=== PATIENT | female | born 1945 | race Caucasian/White ===

== ENCOUNTER 2019-02-08 11:07 | Emergency (ER) | payer MEDICARE, OTHER ==
[2019-02-08] MEDS ORDERED: OXYCODONE-ACETAMINOPHEN 5-325 MG TABLET PO ONE (11:23)
--- NOTE | 2019-02-08 11:24 | ER Document Report ---
ED Medical Screen (RME) - General Chief Complaint: Back Pain Stated Complaint: BACK PAIN Time Seen by Provider: 02/08/19 11:19 Mode of Arrival: Ambulatory Information source: Patient Notes: Patient presents complaining of right upper back pain that wraps around to right upper quadrant of abdomen for the past 3 days. Patient denies any fever nausea or vomiting. Patient denies any urinary symptoms. Patient does states she has a cough although has COPD. She has had a previous cholecystectomy. I have greeted and performed a rapid initial assessment of this patient. A comprehensive ED assessment and evaluation of the patient, analysis of test results and completion of the medical decision making process will be conducted by additional ED providers. - Related Data Allergies/Adverse Reactions: aspirin Allergy (Verified 02/08/19 11:19) atorvastatin [From Lipitor] Allergy (Verified 02/08/19 11:19) codeine Allergy (Verified 02/08/19 11:19) Sulfa (Sulfonamide Antibiotics) Allergy (Verified 02/08/19 11:19) Home Medications: baclofen, percocet Physical Exam - Vital signs Vitals: Temp Pulse Resp BP Pulse Ox 97.7 F 60 18 141/75 H 98 02/08/19 11:12 02/08/19 11:12 02/08/19 11:12 02/08/19 11:12 02/08/19 11:12 - General General appearance: Appears well, Alert Notes: Right sick back pain, right upper quadrant tenderness Course - Vital Signs Vital signs: Temp Pulse Resp BP Pulse Ox 97.7 F 60 18 141/75 H 98 02/08/19 11:12 02/08/19 11:12 02/08/19 11:12 02/08/19 11:12 02/08/19 11:12
[2019-02-08 11:56] LABS: ABSOLUTE EOSINOPHILS # (AUTO) 0.1 10^3/uL (0.0-0.6); ABSOLUTE LYMPHOCYTES (AUTO) 2.3 10^3/uL (0.5-4.7); ABSOLUTE MONOCYTES (AUTO) 0.5 10^3/uL (0.1-1.4); ABSOLUTE NEUT (AUTO) 3.5 10^3/uL (1.7-8.2); BASOPHILS % (AUTO) 0.6 % (0-2); EOSINOPHILS % (AUTO) 2.2 % (0-6); HEMATOCRIT 42.2 % (36.0-47.0); HEMOGLOBIN 14.6 g/dL (12.0-15.5); LYMPHOCYTES % (AUTO) 35.7 % (13-45); MEAN CORPUSCULAR HGB CONC 34.5 g/dL (32.0-36.0); MEAN CORPUSCULAR VOLUME 90 fl (80-97); MONOCYTES % (AUTO) 7.3 % (3-13); PLATELET COUNT 200 10^3/uL (150-450); RED CELL DISTRIBUTION WIDTH 13.3 % (11.5-14.0); SEGMENTED NEUTROPHILS % (AUTO) 54.2 % (42-78); TOTAL CELLS COUNTED % (AUTO) 100 %; WHITE BLOOD COUNT 6.5 10^3/uL (4.0-10.5)
[2019-02-08] MEDS ORDERED: HYDROCOD/ACETAMIN 7.5-325 MG/15 ML ORAL SOLN UDCUP PO ONE (12:08)
[2019-02-08 12:09] LABS: APPEARANCE,URINE CLEAR; BILIRUBIN,URINE NEGATIVE (NEGATIVE); COLOR,URINE YELLOW; GLUCOSE, URINE NEGATIVE (NEGATIVE); KETONES,URINE NEGATIVE (NEGATIVE); LEUKOCYTE ESTERASE,URINE NEGATIVE (NEGATIVE); NITRITE,URINE NEGATIVE (NEGATIVE); PROTEIN,URINE NEGATIVE (NEGATIVE); URINE SPECIFIC GRAVITY 1.017; UROBILINOGEN,URINE NEGATIVE mg/dL (<2.0)
[2019-02-08 12:12] LABS: ALBUMIN 4.2 g/dL (3.5-5.0); ALKALINE PHOSPHATASE 81 U/L (38-126); ANION GAP 9 (5-19); ASPARTATE AMINO TRANSFERASE 22 U/L (14-36); BILIRUBIN,DIRECT 0.1 mg/dL (0.0-0.4); BILIRUBIN,TOTAL 0.7 mg/dL (0.2-1.3); BLOOD UREA NITROGEN 14 mg/dL (7-20); CALCIUM 9.5 mg/dL (8.4-10.2); CARBON DIOXIDE 27 mmol/L (22-30); CHLORIDE 106 mmol/L (98-107); GLUCOSE 100 mg/dL (75-110); TOTAL PROTEIN 7.1 g/dL (6.3-8.2)
--- NOTE | 2019-02-08 12:23 | RADIOLOGY REPORT (SQ) ---
EXAM DESCRIPTION: CHEST 2 VIEWS COMPLETED DATE/TIME: 02/08/2019 11:54 am REASON FOR STUDY: cough COMPARISON: None. EXAM PARAMETERS: NUMBER OF VIEWS: two views TECHNIQUE: PA and lateral views of the chest were obtained. RADIATION DOSE: NA LIMITATIONS: none FINDINGS: LUNGS AND PLEURA: No consolidation, pleural effusion or pneumothorax. MEDIASTINUM AND HILAR STRUCTURES: No mediastinal or hilar contour abnormality. HEART AND VASCULAR STRUCTURES: The cardiac silhouette and pulmonary vasculature are within normal schumacher its. BONES: No acute findings. HARDWARE: None in the chest. OTHER: No other finding. IMPRESSION: No acute cardiopulmonary process. TECHNICAL DOCUMENTATION: JOB ID: [id number] [employer]- All Rights Reserved Reading location - IP/workstation name: [email or web address]
--- NOTE | 2019-02-08 13:18 | ER Document Report ---
ED General - General Chief Complaint: Back Pain Stated Complaint: BACK PAIN Time Seen by Provider: 02/08/19 11:19 Mode of Arrival: Ambulatory TRAVEL OUTSIDE OF THE [place] IN LAST 30 DAYS: No - HPI Notes: Mrs. Vasquez is a 73-year-old female with a chief complaint of right-sided b ack and rib pain. 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 Patient is received steroid injections in her neck multiple times in the past. She is presently taking gabapentin routinely and supplements this with as needed hydrocodone. The patient drove for about 5 hours on Monday (3 days ago) and since that time her pain has gotten considerably worse. She describes the location as the posterior neck area on the right extending into the area of the scapula and then anteriorly all the way to the sternum. This is aggravated by any movement, deep breath or coughing. No fever. No sputum production. Patient has a history of COPD and has some chronic dyspnea with exertion which is unchanged at this time. She is no longer smoker. Patient denies any skin rash. She says she has had shingles in the past. - Related Data Allergies/Adverse Reactions: aspirin Allergy (Verified 02/08/19 11:19) atorvastatin [From Lipitor] Allergy (Verified 02/08/19 11:19) codeine Allergy (Verified 02/08/19 11:19) Sulfa (Sulfonamide Antibiotics) Allergy (Verified 02/08/19 11:19) Home Medications: baclofen, percocet Past Medical History - General Information source: Patient, Relative - Social History Smoking Status: Never Smoker Chew tobacco use (# tins/day): No Frequency of alcohol use: None Drug Abuse: None Lives with: Alone Family History: Reviewed & Not Pertinent Patient has suicidal ideation: No Patient has homicidal ideation: No Pulmonary Medical History: Reports: Hx COPD Musculoskeletal Medical History: Reports Hx Arthritis, Reports Hx Muscle Spasm Review of Systems - Review of Systems Notes: Constitutional: Negative for fever. HENT: Negative for sore throat. Eyes: Negative for visual changes. Cardiovascular: As per HPI. Respiratory: As per HPI. Gastrointestinal: Negative for abdominal pain, vomiting or diarrhea. Genitourinary: Negative for dysuria. Musculoskeletal: As per HPI Skin: Negative for rash. Neurological: Negative for headaches, weakness or numbness. 10 point ROS negative except as marked above and in HPI. Physical Exam - Vital signs Vitals: Temp Pulse Resp BP Pulse Ox 97.7 F 60 18 141/75 H 98 02/08/19 11:12 02/08/19 11:12 02/08/19 11:12 02/08/19 11:12 02/08/19 11:12 - Notes Notes: GENERAL: Female patient appearing approximately stated age appears moderately uncomfortable. SKIN: Good turgor no rashes. HEAD: Normocephalic atraumatic. EYES: PERRLA. Conjunctivae and sclerae clear. EARS: CANALS AND TMS CLEAR. NOSE: CLEAR. MOUTH: Moist mucosa. Good dentition. No stridor or edema. No drooling. NECK: Supple. No masses or thyromegaly. No adenopathy. Carotids 2+ without bruits. No JVD. BACK: Mild dorsal kyphosis. Reproducible tenderness over the posterior neck area and upper back on the right side adjacent to the scapula extending all the way around the 5th-9th ribs on the right side. CHEST: No palpable crepitus or deformity. Mild splinting on the right side. Breath sounds are clear and symmetrical respirations are unlabored. HEART: Regular rhythm. No murmur gallop or rub. ABDOMEN: Soft nontender without masses, organomegaly or rebound. Bowel sounds normally active. No bruits. GENITALIA: Deferred. EXTREMITIES: No edema. No calf tenderness. Cap refill less than 1.5 seconds. Dorsalis pedis and posterior tibial pulses 3+ and symmetrical. NEUROLOGICAL: GCS 15. Alert and oriented x3. Fluent speech. Cranial nerves II through XII intact. Sensorimotor and cerebellar normal. Normal tone. Psychiatric: Appropriate affect. Course - Re-evaluation Re-evalutation: 02/08/19 15:32 Patient was noted to have an elevated d-dimer. Subsequent CTA of the chest did not show pulmonary embolus. Normal troponin. Twelve-lead EKG remarkable only for first-degree AV block. Patient was given 1 dose of oral hydrocodone here and had good relief of symptoms. I think the origin of her pain is likely to be exacerbation of her chronic musculoskeletal problems in her neck and back related to prolonged driving. I discussed this with her and her family in detail. They expressed full understanding of current findings and recommendations. 02/08/19 15:34 - Vital Signs Vital signs: Temp Pulse Resp BP Pulse Ox 97.7 F 60 18 141/75 H 98 02/08/19 11:22 02/08/19 11:22 02/08/19 11:22 02/08/19 11:22 02/08/19 11:22 - Laboratory Result Diagrams: 02/08/19 11:32 02/08/19 11:32 Laboratory results interpreted by me: 02/08/19 02/08/19 11:32 11:32 D-Dimer 0.90 H Urine Blood SMALL H - Diagnostic Test Radiology reviewed: Reports reviewed - EKG Interpretation by Me Additional EKG results interpreted by me: 02/08/19 15:35 Sinus bradycardia with first-degree AV block. Rate 57. Normal axis. Normal QT interval. Discharge - Discharge Clinical Impression: Acute exacerbation of chronic low back pain Condition: Stable Disposition: HOME, SELF-CARE Instructions: Ice Packs ([facility]), Oral Narcotic Medication ([facility]) Additional Instructions: Continue your regular medications and add new topical prescription medication. Return here as needed for new or worsening symptoms. Follow-up with your primary care physician as previously scheduled. Prescriptions: Lidocaine [Lidoderm 5% (700 mg) Transdermal Patch] 1 patch TP DAILY #30 adh..patch
--- NOTE | 2019-02-08 14:57 | RADIOLOGY REPORT (SQ) ---
EXAM DESCRIPTION: CTA CHEST COMPLETED DATE/TIME: 02/08/2019 2:43 pm REASON FOR STUDY: pleuritic CP COMPARISON: None. TECHNIQUE: CT scan of the chest performed using helical scanning technique with dynamic intravenous contrast injection. Images reviewed with lung, soft tissue and bone windows. Reconstructed coronal and sagittal MPR images reviewed. Additional 3 dimensional post-processing performed to develop Maximal Intensity Projection images (NM P). All images stored on PACS. All CT scanners at this facility use dose modulation, iterative reconstruction, and/or weight based d osing when appropriate to reduce radiation dose to as low as reasonably achievable (ALARA). [facility]: Dose Right [facility]: CareDose [facility]: Dose Right [facility]: Teradose 4D [facility]: Bambisa CONTRAST TYPE AND DOSE: Contrast/concentration: Isovue 350.00 mg/ml; Total Contrast Delivered: 56.0 ml; Total Saline Delivered: 52.9 ml Contrast bolus optimized for the pulmonary arteries. Not diagnostic for the aorta. RENAL FUNCTION: GFR > 60. RADIATION DOSE: CT Rad equipment meets quality standard of care and radiation dose reduction techniq ues were employed. CTDIvol: 3.3 - 14.7 mGy. DLP: 539 mGy-cm. . LIMITATIONS: None. FINDINGS: LUNGS AND PLEURA: The trachea and main bronchi are patent. There is mild bronchial wall t hickening ; there is no associated bronchiectasis or segmental mucus plugging. The ground-glass opac ities in the dependent portion of the upper lobes and in the lower lower are nonspecific and could re present atelectasis. There is no consolidation, pleural effusion or pneumothorax. AORTA AND GREAT VESSELS: No thoracic aortic aneurysm. HEART: No cardiomegaly or pericardial effusion. PULMONARY ARTERIES: No pulmonary embolus. HILAR AND MEDIASTINAL STRUCTURES: No adenopathy. HARDWARE: None in the chest. UPPER ABDOMEN: No acute findings. THYROID AND OTHER SOFT TISSUES: No masses or adenopathy. BONES: No acute finding. 3D MIPS: Confirm above findings. OTHER: No other finding. IMPRESSION: 1. No pulmonary embolus. 2. Thickening of the bronchial ashton - correlate clinically for a bronchiolitis. COMMENT: Quality ID # [id number]: Final reports with documentation of one or more dose reduction techniques (e.g., Automated exposure control, adjustment of the mA and/or kV according to patient size, use of iterative reconstruction technique) TECHNICAL DOCUMENTATION: JOB ID: [id number] [employer]- All Rights Reserved Reading location - IP/workstation name: [email or web address]
[2019-02-08 16:03] VITALS: BP 120/74
--- NOTE | 2019-02-08 17:28 | EKG REPORT ---
SEVERITY:- ABNORMAL ECG - SINUS RHYTHM FIRST DEGREE AV BLOCK : Confirmed by: Basil Zelaya 08-Feb-2019 17:27:56
== END 2019-02-08 16:10 | disposition home or self-care (01) ==
LOC: ER 11:07
DX: G89.29 Other chronic pain (principal); M54.5 Low back pain; M47.9 Spondylosis, unspecified; M40.209 Unspecified kyphosis, site unspecified; R07.81 Pleurodynia; R79.89 Other specified abnormal findings of blood chemistry; I44.0 Atrioventricular block, first degree; R00.1 Bradycardia, unspecified; Z79.899 Other long term (current) drug therapy; J44.9 Chronic obstructive pulmonary disease, unspecified; M54.2 Cervicalgia; Z88.8 Allergy status to other drugs, medicaments and biological substances; Z88.6 Allergy status to analgesic agent; Z88.5 Allergy status to narcotic agent; Z88.2 Allergy status to sulfonamides
CPT/HCPCS: 93005; 99284; 36415; 83690; 85025; 80053; 81001; 84484; 85379; 71046; 71275; 93010; A9270 ×2